=== PATIENT | male | born 1975 | race Caucasian/White ===

== ENCOUNTER 2019-09-25 13:54 | Emergency (ER) | payer MEDICARE, OTHER ==
[~2019-09-25] VITALS: Ht 172.7 cm; Wt 63.5 kg
[2019-09-25] MEDS ORDERED: HALO5 PO (15:05)
[2019-09-25] MEDS ORDERED: Seroquel300 MG PO (15:05)
[2019-09-25] MEDS ORDERED: CARB200 PO (15:05)
[2019-09-25] MEDS ORDERED: BENZ2 PO (15:06)
[2019-09-25] MEDS ORDERED: LEVOXYL (15:07)
[2019-09-25] MEDS ORDERED: BENZ100A PO (15:42)
== END 2019-09-25 15:48 | disposition home or self-care (01) ==
LOC: ER 13:54
DX: J06.9 Acute upper respiratory infection, unspecified (principal); R09.1 Pleurisy; Z88.0 Allergy status to penicillin; Z88.2 Allergy status to sulfonamides; Z88.5 Allergy status to narcotic agent; Z88.8 Allergy status to other drugs, medicaments and biological substances; Z79.899 Other long term (current) drug therapy
CPT/HCPCS: 71046; 99283-25